=== PATIENT | male | born 1960 | race Caucasian/White ===

== ENCOUNTER 2022-04-11 13:20 | Emergency (ER) | payer OTHER, SELFPAY ==
[2022-04-11] VITALS (15 sets, daily range): BP systolic 118–144; BP diastolic 65–88; PULSE 88–117; RESP 18–22; TEMP 35.8; O2SAT 91–98
--- NOTE | ~2022-04-11 | CT_ITS ---
EXAMINATION: CT abdomen pelvis w con DATE: 04/11/2022 15:44 INDICATION: Abdominal pain and bloating TECHNIQUE: Computed tomography (CT) of the abdomen and pelvis was performed with 100 mL Omnipaque-300 intravenous contrast. Automated exposure control and iterative reconstruction technique were employe d. The dose-length product was 1456.96 mGy-cm. COMPARISON: None FINDINGS: Mild elevation of the left hemidiaphragm with mild left basilar atelectasis. Heart size is normal. At herosclerotic coronary artery calcific location. No pericardial or pleural effusion. Liver, gallbladd er, spleen, pancreas, bilateral adrenal glands and kidneys are normal. Bowels including the appendix are normal. Bladder and prostate are normal. No free intraperitoneal gas or fluid. No pathologically enlarged abdominal or pelvic lymphadenopathy. Increased fat within the bilateral inguinal canals whic h could be related to either body habitus or small inguinal hernias. Subcutaneous soft tissue gas ext ending posteriorly from the mid left inguinal region, posterior and lateral to the left inguinal katherin l along the left side of the perineum to the inferior left side of the gluteal cleft. No abscess. The re are bridging osteophytes at multiple levels in the lower thoracic spine, consistent with diffuse i diopathic skeletal hyperostosis (DISH). IMPRESSION: 1. Subcutaneous soft tissue gas extending from the left inguinal region along the left side of the pe rineum to the left inferior aspect of the gluteal cleft. This is concerning for necrotizing fasciitis for which emergent surgical consultation would be indicated. Correlate for skin laceration, recent s urgery or other alternative potential etiology. Dr. Byrnes discussed these findings with Dr. Corky perez at 3:58 PM. 2. No acute intra-abdominal/pelvic process. Reviewed, dictated and finalized at location B. IMPRESSION: 1. Subcutaneous soft tissue gas extending from the left inguinal region along t he left side of the perineum to the left inferior aspect of the gluteal cleft. This is concerning for necrotizing fasciitis for which emergent surgical consul tation would be indicated. Correlate for skin laceration, recent surgery or oth er alternative potential etiology. Dr. Byrnes discussed these findings with Arianne Justice at 3:58 PM. 2. No acute intra-abdominal/pelvic process.
--- NOTE | ~2022-04-11 | XR_ITS ---
EXAMINATION: XR chest 2V DATE: 04/11/2022 14:01 INDICATION: Body weakness for 5 days. TECHNIQUE: frontal and lateral views of the chest were obtained. COMPARISON: Chest radiograph dated 09/03/2010 FINDINGS: The lungs are clear with no focal airspace opacities, pulmonary edema, pleural effusion or pneumothor ax. The cardiomediastinal silhouette is normal. Visualized bones and soft tissues are unremarkable. IMPRESSION: 1. No acute cardiopulmonary disease. Reviewed, dictated and finalized at location B.
--- NOTE | ~2022-04-11 | XR_ITS ---
EXAMINATION: XR abdomen/kub 1V DATE: 04/11/2022 14:01 INDICATION: Abdominal bloating. Body weakness for 5 days. TECHNIQUE: A supine view of the abdomen on 2 radiographs was obtained. COMPARISON: None. FINDINGS: Small amount of gas and stool scattered throughout the colon. Small amount of gas within a couple loo ps of small bowel in the abdomen. No dilated gas-filled loops of bowel to suggest obstruction. Elevat ion of the left hemidiaphragm. Atherosclerotic calcification at the bilateral common iliac arteries. Mild scattered degenerative skeletal changes in the spine and pelvis. IMPRESSION: 1. Normal bowel gas pattern. 2. Elevation the left hemidiaphragm. Reviewed, dictated and finalized at location B.
--- NOTE | 2022-04-11 13:31 | ECG_ITS ---
Measurements Intervals [place] Rate: 111 P: 38 TX: 164 QRS: 35 QRSD: 96 T: 45 QT: 312 QTc: 425 Interpretive Statements SINUS TACHYCARDIA VENTRICULAR PREMATURE COMPLEXES POSSIBLE LEFT ATRIAL ENLARGEMENT INCOMPLETE RIGHT BUNDLE BRANCH BLOCK CONSIDER ANTEROSEPTAL INFARCT, AGE INDETERMINATE BASELINE ARTIFACT- I, II, III, AVR ABNORMAL ECG Electronically Signed On 04-11-2022 13:55:16 CDT by Regan Nguyen D.O.
--- NOTE | 2022-04-11 13:41 | ED.WEAKNESS ---
HPI - Weakness General Chief complaint: Weakness <Jeremiah Crespo APRN - Last Filed: 04/11/22 18:03> Stated complaint: weakness <Jeremiah Crespo APRN - Last Filed: 04/11/22 18:03> Time Seen by Provider: 04/11/22 13:30 <Jeremiah Crespo APRN - Last Filed: 04/11/22 18:03> History of Present Illness HPI Narrative: 61-year-old male history of CVA and coronary artery disease presents emergency room for evaluation of generalized weakness. Patient reports that he is dehydrated and has been for 6 days. Patient states that he was seen at his primary care physician office 5 days ago and was told he had a virus. Patient states that his weakness is worsened, and is associated with no bowel movements for 6 days. Patient does state he has flatulence, and does not have any abdominal pain. Patient states he is currently on Augmentin for a gluteal cyst. Denies dysuria or fever. Patient states that he attempted to eat yesterday, became nauseated and threw his food up. Patient states he has not had any oral intake since yesterday. <Jeremiah Crespo APRN - Last Filed: 04/11/22 18:03> Related Data Home medications: Home Medications Medication Instructions Recorded Confirmed amoxicillin-pot clavulanate tablet 04/11/22 aspirin 04/11/22 atorvastatin [Lipitor] 04/11/22 bupropion HCl (smoking deter) mg PO 04/11/22 carvedilol 04/11/22 lisinopril 04/11/22 rosuvastatin mg 04/11/22 04/11/22 sitagliptin-metformin [Janumet] tablet 04/11/22 <Jeremiah Crespo APRN - Last Filed: 04/11/22 18:03> Allergies/Adverse reactions: Allergies Allergy/AdvReac Type Severity Reaction Status Date / Time No Known Allergies Allergy Mild Verified 08/31/10 20:43 <Jeremiah Crespo APRN - Last Filed: 04/11/22 18:03> Review of Systems Review of Systems: CONSTITUTIONAL: Denies fever, chills, or sweats. EYES: Denies visual changes, redness, or discharge. ENT: Denies rhinorrhea, congestion, sore throat, or otalgia. CARDIOVASCULAR: Denies chest pain, palpitations, or edema. RESPIRATORY: Denies cough or dyspnea. GASTROINTESTINAL: Denies abdominal pain, nausea, vomiting, or diarrhea. GENITOURINARY: Denies dysuria or hematuria. SKIN: Denies rash or itching. MUSCULOSKELETAL: Denies back pain, joint pain, or myalgia. NEUROLOGIC: Reports generalized weakness PSYCHIATRIC: Denies anxiety or depression. <Jeremiah Crespo APRN - Last Filed: 04/11/22 18:03> Exam Narrative: GENERAL: Well-appearing, well-nourished, and in no acute distress. HEAD: Normocephalic, atraumatic. EYES: PERRLA and EOMI. CHEST: Clear to auscultation. No respiratory distress. Rhonchi heard throughout, wheezes in upper lung marcial HEART: Tachycardic and regular rhythm. No murmur heard. Normal peripheral pulses. ABDOMEN: Soft, nontender, obese, nondistended, normal active bowel sounds. Large, indurated, erythematous mass noted to the left inguinal region into the left scrotum EXTREMITIES: Normal range of motion. No edema. SKIN: Warm, dry, no rash. NEURO: Left upper extremity weakness. alert and oriented x3. PSYCH: Normal mood and affect. <Jeremiah Crespo APRN - Last Filed: 04/11/22 18:03> Course PRESS WRITER/PA Physician Supervision For this encounter, I have reviewed the PA documentation, treatment plan and medical decision making: And I have had [id number] time with the patient. 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
[2022-04-11 13:43] LABS: Basophils Absolute Auto 0.1 K/mm3 (0.0-0.1); Basophils Percent Auto 0.1 % (0.2-1.2); Hematocrit 48.7 % (42.0-52.0); Hemoglobin 16.5 g/dL (14.0-18.0); Immature Granulocyte Absolute 0.96 K/mm3 (0.00-0.031); Immature Granulocyte Percent A 2.2 % (0-0.5); Lymphocytes Absolute Auto 1.33 K/mm3 (0.9-3.2); Mean Corpuscular HGB Conc 33.9 g/dl (32-36); Mean Corpuscular Hemoglobin 30.2 pg (26-34); Mean Corpuscular Volume 89.2 fl (80-100); Mean Platelet Volume 9.6 fl (7.4-10.4); Monocytes Absolute Auto 3.8 K/mm3 (0.1-0.6); Monocytes Percent Auto 8.5 % (2.6-8.5); Neutrophils Percent Auto 86.2 % (45.5-73.1); Platelet Count Result 287 k/mm3 (150-375); Red Blood Count 5.46 M/mm3 (4.6-6.20); Red Cell Distribution Width 13.1 % (11.5-14.5); White Blood Count 44.1 K/mm3 (4.5-10.0)
[2022-04-11 13:53] LABS: Alanine Aminotransferase 21 U/L (6-50); Albumin Level 3.6 g/dL (3.5-5.1); Alkaline Phosphatase 165 U/L (38-126); Anion Gap 10 mmol/L (8-16); Aspartate Amino Transferase 23 U/L (17-59); Bilirubin,Total 1.5 mg/dL (0.2-1.3); Blood Urea Nitrogen 15 mg/dL (9-20); Calcium 8.4 mg/dL (8.4-10.2); Carbon Dioxide 24 mmol/L (22-30); Chloride 90 mmol/L (98-107); Estimated CRCL calculation 90 ml/min; Estimated Glomerular Filt Rate > 60; Glucose 282 mg/dL (65-110); Potassium 4.3 mmol/L (3.4-5.0); Sodium 124 mmol/L (137-145)
[2022-04-11] MEDS: SODIUM CHLORIDE 0.9% IV 1,000 ML 150 ML IV CONT (13:59)
[2022-04-11] MEDS: ALBUTEROL SULFATE NEB 2.5 MG/3 ML INH INHALATION ×3 (14:04→14:40)
[2022-04-11] MEDS: IPRATROPIUM BR 0.02% INH SOLN 0.5 MG/2.5 ML VIAL INHALATION (14:04)
[2022-04-11 14:05] LABS: NT Pro B Type Natriuretic Pept 845 pg/mL (5-100); Troponin I < 0.012 ng/mL (0.000-0.034)
[2022-04-11 15:08] LABS: Influenza A QL RT-PCR Negative (Negative); Influenza B QL RT-PCR Negative (Negative); SARS-CoV-2 RNA PCR Negative
[2022-04-11] MEDS: SODIUM CHLORIDE 0.9% IV 1,000 ML 999 ML IV CONT (16:14)
[2022-04-11] MEDS: CLINDAMYCIN 900 MG/D5W 50 ML 900 MG/50 ML PIGGYBACK 50 MG IVPB (16:24)
--- NOTE | 2022-04-11 16:32 | PC.NURSE ---
report called to [facility] er. [place] [facility] called for transport
[2022-04-11 17:24] LABS: CRP 39.8 mg/dL (<1.0)
--- NOTE | 2022-04-11 17:31 | PC.NURSE ---
[facility] accepted transfer to [facility] er [facility] extended to 1900
== END 2022-04-11 18:09 | disposition short-term general hospital (02) ==
PROVIDERS: Emergency Provider Nurse Practitioner Family
DX: N49.3 Fournier gangrene (principal); Z20.822 Contact with and (suspected) exposure to COVID-19; I25.10 Atherosclerotic heart disease of native coronary artery without angina pectoris; E11.9 Type 2 diabetes mellitus without complications; Z86.73 Personal history of transient ischemic attack (TIA), and cerebral infarction without residual deficits; Z79.82 Long term (current) use of aspirin; Z79.84 Long term (current) use of oral hypoglycemic drugs
CPT/HCPCS: 36415; 71046; 74018; 74177; 80053; 83605; 83880; 84484; 85025; 86140; 87040; 87502; 93005; 94640; 96361; 96365; 96367; 99285; C9803; J0743; J3370; J7030; Q9967; U0003; U0005

== ENCOUNTER 2023-08-04 16:32 | Inpatient (IN) | payer BC, SELFPAY ==
[2023-08-04] VITALS (15 sets, daily range): BP systolic 92–119; BP diastolic 59–80; PULSE 60–74; RESP 17–32; TEMP 36.4–36.7; O2SAT 74–98
--- NOTE | ~2023-08-04 | CT_ITS ---
EXAMINATION: CTA brain carotid DATE: 08/04/2023 22:51 INDICATION: Right-sided weakness and ataxia TECHNIQUE: Computed tomographic angiography (CTA) of the head was performed without and with 100 mL O mnipaque-350 intravenous contrast. CTA of the neck was performed with intravenous contrast. The dose- length product was 2569.65 mGy-cm. Maximum intensity projection and volume rendered 3D-reconstruction s were created by the technologist on a separate workstation. Automated exposure control and iterativ e reconstruction technique were employed. COMPARISON: 09/02/2010 FINDINGS: HEAD CTA: There is no acute intraparenchymal hemorrhage. No evidence of mass lesion. No evidence of a cute infarction. There is mild periventricular and subcortical hypodensity probably related to small vessel ischemic disease. There is mild prominence of the sulci and ventricles related to cerebral atr ophy. Intracranial calcified cerebral atherosclerosis is noted. There are no extra-axial collections. There is no mass effect or midline shift. The orbits and soft tissues are unremarkable. There is mil d mucosal thickening of the paranasal sinuses. There is no significant stenosis of the basilar artery or posterior cerebral arteries. There is no si gnificant stenosis of the intracranial internal carotid arteries or the anterior or middle cerebral a rteries. The anterior communicating artery and posterior communicating arteries are normal. There is no aneurysm. NECK CTA: The thyroid gland is unremarkable. The submandibular and parotid glands are symmetric. Ther e is no lymphadenopathy. There are no masses identified. The airway is unremarkable. The superior med iastinum is unremarkable. There is severe cervical spondylosis. There is 0% stenosis of the proximal right internal carotid artery relative to normal distal artery l umen diameter (NASCET criteria). There is 0% stenosis of the proximal left internal carotid artery re lative to normal distal artery lumen diameter. IMPRESSION: 1. No acute intracranial abnormality. Normal head CTA. 2. 0% stenosis of the proximal right internal carotid artery relative to normal distal artery lumen d iameter (NASCET criteria). 3. 0% stenosis of the proximal left internal carotid artery relative to normal distal artery lumen di ameter. Reviewed, dictated and finalized at location F. IMPRESSION: 1. No acute intracranial abnormality. Normal head CTA. 2. 0% stenosis of the proximal right internal carotid artery relative to normal distal artery lumen diameter (NASCET criteria). 3. 0% stenosis of the proximal left internal carotid artery relative to normal distal artery lumen diameter.
--- NOTE | ~2023-08-04 | CT_ITS ---
EXAMINATION: CT abdomen pelvis wo con DATE: 08/04/2023 22:48 INDICATION: Acute renal failure TECHNIQUE: Computed tomography (CT) of the abdomen and pelvis was performed without intravenous contr ast. The dose-length product (DLP) was 1626.10 mGy-cm. Automated exposure control and iterative recon struction technique were employed. COMPARISON: 04/11/2022 FINDINGS: Portions of the left abdomen are excluded from the examination. Minimal dependent atelectas is is present in the lung bases. Cardiomegaly is noted. The liver, spleen, pancreas, and adrenal glan ds are normal. The gallbladder is mildly distended. There appears to be mild gallbladder wall thicken ing and pericholecystic inflammatory change. There is calcified atherosclerosis of the aorta and many of the other arteries. No pathologically enlarged abdominal or pelvic lymph nodes are identified. No free intraperitoneal gas or evidence of bowel obstruction. There are bilateral inguinal hernias cont aining fat. There is a burst fracture of L3, new since the comparison examination. IMPRESSION: 1. Findings suspicious for acute cholecystitis. Correlate for right upper quadrant pain. 2. L3 burst fracture, new since the comparison examination. Reviewed, dictated and finalized at location F. IMPRESSION: 1. Findings suspicious for acute cholecystitis. Correlate for right upper quadr ant pain. 2. L3 burst fracture, new since the comparison examination.
--- NOTE | ~2023-08-04 | US_ITS ---
US abdomen limited DATE: 08/05/2023 09:07 INDICATION: Right upper quadrant abdominal pain TECHNIQUE: Real-time imaging of liver, pancreas, gallbladder, Doppler analysis COMPARISON: 08/04/2023 CT abdomen pelvis 04/11/2022 CT abdomen pelvis FINDINGS: No hepatic or pancreatic space-occupying mass lesion is evident. Normal hepatopedal portal venous flow direction. There is gallbladder wall thickening, gallbladder wall measuring up to approximately 4.7 mm thickness . Negative sonographic Olmedo's sign. The common bile duct measures up to approximately 7 mm, borderline. Recommend correlation with serum bilirubin level. IMPRESSION: Gallbladder wall thickening; cannot exclude acute cholecystitis Reviewed, dictated and finalized at Location A. Reviewed, dictated and finalized at location A.
--- NOTE | ~2023-08-04 | XR_ITS ---
EXAMINATION: XR chest 1V portable INDICATION: Weakness, hypertension TECHNIQUE: Portable AP chest at 2129 hours COMPARISON: 04/11/2022 FINDINGS: The lung volumes are low. The lungs are free of acute opacities. No pleural effusion or pne umothorax. The cardiomediastinal silhouette is normal. IMPRESSION: 1. No acute cardiopulmonary abnormality. Reviewed, dictated and finalized at location F.
--- NOTE | 2023-08-04 20:47 | ECG_ITS ---
Measurements Intervals [place] Rate: 62 P: 27 NV: 153 QRS: 19 QRSD: 102 T: -29 QT: 378 QTc: 385 Interpretive Statements SINUS RHYTHM INCOMPLETE RIGHT BUNDLE BRANCH BLOCK INFERIOR INFARCT, AGE INDETERMINATE ST-T WAVE ABNORMALITY IN ANTERIOR LEADS- CONSIDER ISCHEMIA ABNORMAL ECG COMPARED TO ECG 04/11/2022 13:36:38 SINUS RHYTHM NOW PRESENT Electronically Signed On 08-05-2023 7:22:08 CDT by Regan Nguyen D.O.
[2023-08-04 21:14] LABS: Alveolar/Arterial O2 Gradient 33.4 mmHg; Base Excess ABG -0.1 mEq/l (+/-2.0); Fractional Inspired Oxygen 21 %; HCO3 ABG 28.5 mEq/l (22.0-26.0); Oxygen Content ABG 17.6 %vol (16.0-22.0); PO2 FiO2 Ratio Arterial Blood 2.02 %; Total Hemoglobin 17.2 g/dL (12.0-18.0)
[2023-08-04 21:17] LABS: Basophils Percent Auto 0.3 % (0.2-1.2); Eosinophils Absolute Auto 0.1 K/mm3 (0-0.3); Eosinophils Percent Auto 0.3 % (0-4.4); Hematocrit 53.9 % (42.0-52.0); Hemoglobin 16.6 g/dL (14.0-18.0); Immature Granulocyte Absolute 0.08 K/mm3 (0.00-0.031); Immature Granulocyte Percent A 0.5 % (0-0.5); Lymphocytes Absolute Auto 2.48 K/mm3 (0.9-3.2); Lymphocytes Percent Auto 16.3 % (18.3-44.2); Mean Corpuscular HGB Conc 30.8 g/dl (32-36); Mean Corpuscular Hemoglobin 29.7 pg (26-34); Mean Corpuscular Volume 96.6 fl (80-100); Mean Platelet Volume 9.9 fl (7.4-10.4); Monocytes Absolute Auto 1.7 K/mm3 (0.1-0.6); Neutrophils Absolute Auto 10.9 K/mm3 (1.3-6.7); Neutrophils Percent Auto 71.6 % (45.5-73.1); Platelet Count Result 253 k/mm3 (150-375); Red Blood Count 5.58 M/mm3 (4.6-6.20); Red Cell Distribution Width 15.7 % (11.5-14.5); White Blood Count 15.2 K/mm3 (4.5-10.0)
[2023-08-04 21:18] LABS: PCO2 ABG 61.7 mmHg (35.0-45.0); pH ABG 7.282 (7.350-7.450)
[2023-08-04 21:19] LABS: PO2 ABG 42.4 mmHg (80.0-100.0)
[2023-08-04 21:20] LABS: Site Drawn RIGHT RADIAL
[2023-08-04 21:21] LABS: Device ROOM AIR; Modified Allen's Test Pass
[2023-08-04] MEDS: SODIUM CHLORIDE 0.9% IV 1,000 ML 999 ML IV CONT ×3 (21:21→22:10)
[2023-08-04 21:26] LABS: INR 1.1; Prothrombin Time 14.9 Seconds (11.1-14.7)
[2023-08-04 21:27] LABS: Partial Thromboplastin Time 27.2 SECONDS (22.3-36.8)
[2023-08-04 21:30] LABS: Lactic Acid Reflex 1.4 mmol/L (0.7-2.0)
[2023-08-04 21:33] LABS: Alanine Aminotransferase 16 U/L (6-50); Albumin Level 3.8 g/dL (3.5-5.1); Alkaline Phosphatase 82 U/L (38-126); Anion Gap 5 mmol/L (8-16); Aspartate Amino Transferase 21 U/L (17-59); Bilirubin,Total 0.6 mg/dL (0.2-1.3); Blood Urea Nitrogen 62 mg/dL (9-20); CRP 2.5 mg/dL (<1.0); Calcium 8.6 mg/dL (8.4-10.2); Carbon Dioxide 31 mmol/L (22-30); Chloride 94 mmol/L (98-107); Estimated CRCL calculation 44 ml/min; Estimated Glomerular Filt Rate 32; Glucose 170 mg/dL (65-110); Lipase 66 U/L (23-300); Magnesium 2.4 mg/dL (1.6-2.3); Potassium 6.1 mmol/L (3.4-5.0); Sodium 130 mmol/L (137-145)
[2023-08-04] MEDS: SODIUM BICARBONATE 8.4% 50 MEQ/50 ML SYRINGE IV PUSH (21:41)
[2023-08-04] MEDS: CALCIUM GLUCONATE 1,000 MG/10 ML VIAL 1000 MG IV PUSH (21:41)
[2023-08-04] MEDS: INSULIN HUMAN REGULAR (*BKC) 100 UNITS/ML 10 UNITS IV PUSH (21:41)
[2023-08-04] MEDS: DEXTROSE 50% 25 GM/50 ML SYRINGE IV PUSH (21:41)
[2023-08-04 21:42] LABS: NT Pro B Type Natriuretic Pept 4560 pg/mL (19.9-100); Troponin I 0.545 ng/mL (0.000-0.034)
[2023-08-04] MEDS: SODIUM POLYSTYRENE SULFONONATE 15 GM/60 ML BTL 30 GM PO (21:42)
[2023-08-04 21:45] LABS: Procalcitonin 0.2 ng/mL
[2023-08-04 21:50] LABS: Erythrocyte Sedimentation Rate 1 mm/hr (0-20)
[2023-08-04 21:51] LABS: Influenza A QL RT-PCR Negative (Negative); Influenza B QL RT-PCR Negative (Negative); SARS-CoV-2 RNA PCR Negative (Negative)
[2023-08-04 23:26] LABS: Alveolar/Arterial O2 Gradient 87.7 mmHg; Base Excess ABG -3.3 mEq/l (+/-2.0); Fractional Inspired Oxygen 36 %; HCO3 ABG 28.2 mEq/l (22.0-26.0); Oxygen Content ABG 19.7 %vol (16.0-22.0); Oxygen Saturation ABG 89.4 % (95.0-100.0); PO2 ABG 73.5 mmHg (80.0-100.0); PO2 FiO2 Ratio Arterial Blood 2.04 %; Total Hemoglobin 16.1 g/dL (12.0-18.0)
[2023-08-04 23:26] LABS: Appearance Urine Turbid (Clear); Bacteria Urine None Seen /hpf; Bilirubin Urine Negative (Negative); Blood Urine Trace (Negative); Color Urine Dark Yellow (Yellow); Glucose Urine UA Negative (Negative); Hyaline Casts Urine Present /lpf; Ketones Urine Negative (Negative); Leukocyte Esterase Ur Negative LEU/UL (Negative); Nitrate Urine Negative (Negative); Non Pathogenic Casts >20; Protein Urine 2+ mg/dL (Negative); RBC Urine 0-2 /hpf (0-2); Specific Grav Ur 1.033 (1.001-1.035); Squamous Epithelial Cell Urine Many /hpf (Few)
[2023-08-04 23:28] LABS: pH ABG 7.152 (7.350-7.450)
[2023-08-04 23:29] LABS: PCO2 ABG 82.3 mmHg (35.0-45.0)
[2023-08-04 23:30] LABS: Device NASAL CANNULA; Modified Allen's Test Pass; Oxyhemoglobin 87.1 % THb (90.0-100.0); Site Drawn RIGHT RADIAL
[2023-08-04 23:45] LABS: Add Urine Microscopic? YES
--- NOTE | 2023-08-04 23:46 | ED.GENADULT ---
HPI - General Adult General Chief complaint: Neuro Symptoms/Deficit Stated complaint: weakness Time Seen by Provider: 08/04/23 20:32 History of Present Illness HPI narrative: Patient 62-year-old gentleman who presents the emergency department with chief complaint of right-sided weakness. Patient reports that he has prior history of stroke and history of an KS with weakness of the left side of his body patient also reports she has history of diabetes and has had Arthur's gangrene. 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 Patient reports that he had no trauma reports no fever but just feels generally weak Related Data Home Medications Medication Instructions Recorded Confirmed amoxicillin 875 mg-potassium tablet 04/11/22 clavulanate 125 mg tablet aspirin 325 mg tablet 04/11/22 atorvastatin 80 mg tablet (Lipitor) 04/11/22 bupropion HCl (smoking deter) 150 mg PO 04/11/22 mg tablet,12 hr sustained-release(smoking deterrent) carvedilol 6.25 mg tablet 04/11/22 lisinopril 10 mg tablet 04/11/22 rosuvastatin 40 mg tablet mg 04/11/22 04/11/22 sitagliptin phosphate 50 tablet 04/11/22 mg-metformin 1,000 mg tablet (Janumet) Allergies Allergy/AdvReac Type Severity Reaction Status Date / Time No Known Allergies Allergy Mild Verified 08/31/10 20:43 Review of Systems Review of Systems: A 10 system review of systems was completed on the patient and is negative except for what is stated in the HPI. Nursing and ancillary documentation was reviewed. Exam Narrative: GENERAL: Well-appearing, well-nourished, and in no acute distress. HEAD: Normocephalic, atraumatic. EYES: PERRLA and EOMI. ENT: Nares clear, no rhinorrhea or epistaxis. Mucous membranes moist. NECK: Supple. CHEST: Clear to auscultation. No respiratory distress. HEART: Regular rate and rhythm. No murmur heard. Normal peripheral pulses. ABDOMEN: Soft, nontender, nondistended, normal active bowel sounds. EXTREMITIES: Normal range of motion. No edema. : No crepitance no necrotic tissue no appreciable abscess or cellulitis SKIN: Warm, dry, no rash. NEURO: No focal deficits. Slightly decreased sustainability director strength on the right upper extremity left lower extremity is chronically weak and is able to lift against gravity. Right lower extremity is slightly weaker alert and oriented x3. PSYCH: Normal mood and affect. Course Vital Signs Vital signs: Vital Signs Temperature 36.7 C 08/04/23 16:34 Pulse Rate 64 08/04/23 16:34 Respiratory Rate 22 H 08/04/23 16:34 Blood Pressure 114/59 L 08/04/23 16:34 Pulse Oximetry 93 08/04/23 16:34 Oxygen Delivery Room Air 08/04/23 16:34 Temperature 36.4 C 08/04/23 20:37 Pulse Rate 68 08/04/23 23:16 Respiratory Rate 24 H 08/04/23 23:16 Blood Pressure 119/80 08/04/23 23:16 Pulse Oximetry 96 08/04/23 23:16 Oxygen Delivery Nasal Cannula 08/04/23 21:20 Oxygen Flow Rate 3 08/04/23 21:20 Medical Decision Making [facility] Narrative Medical decision making narrative: Differential diagnosis includes stroke, ACS, hypercapnic respiratory failure, pneumonia, COVID, UTI, dehydration, renal failure Laboratory studies were obtained on the patient which showed a white count of 15.2 initial ABG showed a pH of 7.262 the patient was repositioned and allowed to ventilate better due to his body habitus and repeat ABG showed a pH of 7.152 with a PCO2 of 82. Patient was started on BiPAP at that time. Chest x-ray showed no focal infiltrate no signs of pulmonary edema electrolytes showed a sodium of 130 a CO2 of 31 anion gap of 5 creatinine of 2.1 which is increased from his last set of electrolytes less than year ago that showed a creatinine 1.0 patient a glucose of 170 lactic acid was 1.4 magnesium was 2.4 liver enzymes were within normal limits [facility], [place]
[2023-08-05] VITALS (92 sets, daily range): BP systolic 100–143; BP diastolic 64–99; PULSE 54–82; RESP 11–29; TEMP 35.6–36.6; O2SAT 87–100; BMI 44.1
[2023-08-05] MEDS: ASPIRIN 81 MG CHEWABLE TABLET 324 MG PO (00:20)
[2023-08-05] MEDS: SODIUM CHLORIDE 0.9% IV 1,000 ML 125 ML IV CONT ×2 (00:41→09:00)
[2023-08-05 02:21] LABS: Troponin I 0.485 ng/mL (0.000-0.034)
[2023-08-05 03:34] LABS: Troponin I 0.448 ng/mL (0.000-0.034)
[2023-08-05 08:32] LABS: Glucose Point of Care 134 mg/dl (65-105)
[2023-08-05] MEDS: ASPIRIN 81 MG CHEWABLE TABLET PO (09:06)
[2023-08-05 10:28] LABS: Basophils Absolute Auto 0.1 K/mm3 (0.0-0.1); Basophils Percent Auto 0.4 % (0.2-1.2); Eosinophils Percent Auto 0.3 % (0-4.4); Hematocrit 54.3 % (42.0-52.0); Hemoglobin 16.2 g/dL (14.0-18.0); Immature Granulocyte Absolute 0.06 K/mm3 (0.00-0.031); Immature Granulocyte Percent A 0.4 % (0-0.5); Lymphocytes Absolute Auto 1.33 K/mm3 (0.9-3.2); Lymphocytes Percent Auto 9.9 % (18.3-44.2); Mean Corpuscular HGB Conc 29.8 g/dl (32-36); Mean Corpuscular Hemoglobin 29.9 pg (26-34); Mean Corpuscular Volume 100.4 fl (80-100); Mean Platelet Volume 9.6 fl (7.4-10.4); Monocytes Absolute Auto 1.3 K/mm3 (0.1-0.6); Monocytes Percent Auto 9.9 % (2.6-8.5); Neutrophils Absolute Auto 10.6 K/mm3 (1.3-6.7); Neutrophils Percent Auto 79.1 % (45.5-73.1); Platelet Count Result 194 k/mm3 (150-375); Red Blood Count 5.41 M/mm3 (4.6-6.20); Red Cell Distribution Width 15.8 % (11.5-14.5); White Blood Count 13.4 K/mm3 (4.5-10.0)
[2023-08-05 10:31] LABS: Alveolar/Arterial O2 Gradient 150.3 mmHg; Base Excess ABG -1.8 mEq/l (+/-2.0); Fractional Inspired Oxygen 40 %; HCO3 ABG 27.1 mEq/l (22.0-26.0); Oxygen Content ABG 20.4 %vol (16.0-22.0); Oxyhemoglobin 88.3 % THb (90.0-100.0); PO2 ABG 62.9 mmHg (80.0-100.0); PO2 FiO2 Ratio Arterial Blood 1.57 %; Total Hemoglobin 16.5 g/dL (12.0-18.0)
[2023-08-05 10:44] LABS: pH ABG 7.254 (7.350-7.450)
[2023-08-05 10:47] LABS: PCO2 ABG 62.6 mmHg (35.0-45.0); Site Drawn LEFT BRACHIAL
[2023-08-05 10:48] LABS: Device NON-INVASIVE VENT; Non-Invasive Expiratory Pressure 8 CMH2O; Non-Invasive Inspiratory Pressure 20 CMH2O; Non-Invasive Vent Rate 24 /MIN
[2023-08-05 10:51] LABS: Alanine Aminotransferase 15 U/L (6-50); Albumin Level 3.5 g/dL (3.5-5.1); Alkaline Phosphatase 79 U/L (38-126); Anion Gap 6 mmol/L (8-16); Aspartate Amino Transferase 26 U/L (17-59); Bilirubin,Total 0.5 mg/dL (0.2-1.3); Blood Urea Nitrogen 50 mg/dL (9-20); Calcium 8.1 mg/dL (8.4-10.2); Carbon Dioxide 29 mmol/L (22-30); Chloride 100 mmol/L (98-107); Estimated CRCL calculation 48 ml/min; Estimated Glomerular Filt Rate 36; Glucose 131 mg/dL (65-110); Potassium 5.6 mmol/L (3.4-5.0); Sodium 135 mmol/L (137-145)
[2023-08-05 11:00] LABS: Platelet Estimate Adequate (Adequate); Schistocytes None Seen (NORMAL)
--- NOTE | 2023-08-05 11:05 | PM.IMHP ---
H&P: HPI History of Present Illness Date/Time: 08/05/23 11:05 Chief Complaint: Right-sided weakness Narrative: Patient 62-year-old morbidly obese man who presents the emergency department with chief complaint of right-sided weakness.? Patient reports that he has prior history of stroke and history of an CO with weakness of the left side of his body. patient also reports history of diabetes and has had Arthur's gangrene.? 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 At the time of my examination he had no weakness in her right upper or lower extremity. CTA head and neck were negative for any acute findings in the ED. patient denies any fever chills chest pain abdominal pain nausea vomiting or change in bladder or bowel habits. In the ED was found to be hypoxic and was put on BiPAP Review of Systems Review of Systems: All systems reviewed & are unremarkable except as noted in HPI and below Meds Home Medications and Allergies Home Medications Medication Instructions Recorded Confirmed Type amoxicillin 875 mg-potassium tablet 04/11/22 History clavulanate 125 mg tablet aspirin 325 mg tablet 04/11/22 History atorvastatin 80 mg tablet (Lipitor) 04/11/22 History bupropion HCl (smoking deter) 150 mg PO 04/11/22 History mg tablet,12 hr sustained-release(smoking deterrent) carvedilol 6.25 mg tablet 04/11/22 History lisinopril 10 mg tablet 04/11/22 History rosuvastatin 40 mg tablet mg 04/11/22 04/11/22 History sitagliptin phosphate 50 tablet 04/11/22 History mg-metformin 1,000 mg tablet (Janumet) Allergies Allergy/AdvReac Type Severity Reaction Status Date / Time No Known Allergies Allergy Mild Verified 08/31/10 20:43 Vital Signs Vital Signs - 24 hr 08/04/23 16:34 08/04/23 19:55 08/04/23 20:37 Temperature 98.1 F Pulse Rate 64 60 64 Respiratory Rate 22 H 21 H Blood Pressure 114/59 L 104/62 Pulse Oximetry 93 93 Oxygen Delivery Room Air Oxygen Flow Rate 08/04/23 20:37 08/04/23 21:20 08/04/23 21:24 Temperature 97.6 F Pulse Rate 64 62 Respiratory Rate 24 H 30 H Blood Pressure 92/70 L Pulse Oximetry 94 91 90 Oxygen Delivery Nasal Cannula Oxygen Flow Rate 3 08/04/23 21:32 08/04/23 21:58 08/04/23 22:37 Temperature Pulse Rate 65 71 Respiratory Rate 32 H 26 H Blood Pressure Pulse Oximetry 90 91 Oxygen Delivery Oxygen Flow Rate 08/04/23 22:46 08/04/23 23:02 08/04/23 23:03 Temperature Pulse Rate 74 74 Respiratory Rate 28 H 17 Blood Pressure 102/72 Pulse Oximetry 88 L 74 L 78 L Oxygen Delivery Oxygen Flow Rate 08/04/23 23:15 08/04/23 23:16 08/04/23 23:41 Temperature Pulse Rate 70 68 Respiratory Rate 21 H 24 H 20 Blood Pressure 119/80 Pulse Oximetry 98 96 90 Oxygen Delivery BiPAP Oxygen Flow Rate 08/04/23 23:50 08/05/23 00:11 08/05/23 01:22 Temperature 97.6 F Pulse Rate 65 60 Respiratory Rate 24 H 27 H Blood Pressure 104/77 113/77 Pulse Oximetry 90 96 94 Oxygen Delivery BiPAP Oxygen Flow Rate 08/05/23 02:33 08/05/23 03:07 08/05/23 04:20 Temperature Pulse Rate 63 81 63 Respiratory Rate 14 24 H 22 H Blood Pressure 143/87 H 100/67 Pulse Oximetry 98 95 100 Oxygen Delivery BiPAP Oxygen Flow Rate 08/05/23 05:40 08/05/23 05:05 08/05/23 06:29 Temperature Pulse Rate 60 82 63 Respiratory Rate 15 24 H 19 Blood Pressure 120/76 132/80 Pulse Oximetry 100 95 100 Oxygen Delivery BiPAP Oxygen Flow Rate 08/05/23 07:31 08/05/23 09:05 08/05/23 02:01 Temperature Pulse Rate 60 60 62 Respiratory Rate 18 29 H 21 H Blood Pressure 119/78 111/76 Pulse Oximetry 100 100 95 Oxygen Delivery BiPAP Oxygen Flow Rate 08/05/23 02:06 08/05/23 02:15 08/05/23 02:16 Temperature Pulse Rate 62 62 61 Respiratory Rate 18 19 21 H
--- NOTE | 2023-08-05 13:37 | ADMGEN ---
This patient, Uri Rudd, was admitted to IMU Room 231-01 at 1332. Patient/family oriented to hospital policies and general routines including ID bracelet, bed and alarms, visiting hours, pain management, procedures, bathroom and other care routines, personal items, smoking policy, room service/diet, and visiting hours. Information on how to activate the Rapid Response Team has been discussed. Patient/Family are encouraged to report perceived risks to care and to ask questions if they do not understand what they are told or what they should do.
[2023-08-05] MEDS: ENOXAPARIN 40 MG/0.4 ML SYRINGE SUB-Q (17:09)
[2023-08-05 23:36] LABS: Glucose Point of Care 92 mg/dl (65-105)
[2023-08-06] VITALS (19 sets, daily range): BP systolic 129–148; BP diastolic 55–68; PULSE 62–90; RESP 14–25; TEMP 36.1–37.2; O2SAT 92–99
[2023-08-06] MEDS: SODIUM CHLORIDE 0.9% IV 1,000 ML 125 ML IV CONT ×2 (02:20→13:39)
[2023-08-06 05:01] LABS: Basophils Percent Auto 0.4 % (0.2-1.2); Eosinophils Absolute Auto 0.1 K/mm3 (0-0.3); Eosinophils Percent Auto 0.6 % (0-4.4); Hematocrit 50.3 % (42.0-52.0); Hemoglobin 15.1 g/dL (14.0-18.0); Immature Granulocyte Absolute 0.03 K/mm3 (0.00-0.031); Immature Granulocyte Percent A 0.3 % (0-0.5); Lymphocytes Absolute Auto 1.17 K/mm3 (0.9-3.2); Lymphocytes Percent Auto 10.8 % (18.3-44.2); Mean Corpuscular Hemoglobin 29.2 pg (26-34); Mean Corpuscular Volume 97.3 fl (80-100); Mean Platelet Volume 9.8 fl (7.4-10.4); Monocytes Absolute Auto 1.2 K/mm3 (0.1-0.6); Monocytes Percent Auto 11.4 % (2.6-8.5); Neutrophils Absolute Auto 8.3 K/mm3 (1.3-6.7); Neutrophils Percent Auto 76.5 % (45.5-73.1); Platelet Count Result 195 k/mm3 (150-375); Red Blood Count 5.17 M/mm3 (4.6-6.20); Red Cell Distribution Width 15.6 % (11.5-14.5); White Blood Count 10.8 K/mm3 (4.5-10.0)
[2023-08-06 05:09] LABS: Anion Gap 5 mmol/L (8-16); Blood Urea Nitrogen 33 mg/dL (9-20); Calcium 8.2 mg/dL (8.4-10.2); Carbon Dioxide 30 mmol/L (22-30); Chloride 104 mmol/L (98-107); Estimated CRCL calculation 71 ml/min; Estimated Glomerular Filt Rate 52; Glucose 94 mg/dL (65-110); Potassium 4.9 mmol/L (3.4-5.0); Sodium 139 mmol/L (137-145)
[2023-08-06 10:50] LABS: Alveolar/Arterial O2 Gradient 163.8 mmHg; Base Excess ABG -0.7 mEq/l (+/-2.0); Fractional Inspired Oxygen 40 %; HCO3 ABG 24.5 mEq/l (22.0-26.0); Oxygen Content ABG 20.6 %vol (16.0-22.0); Oxygen Saturation ABG 94.3 % (95.0-100.0); Oxyhemoglobin 93.8 % THb (90.0-100.0); PCO2 ABG 42.6 mmHg (35.0-45.0); PO2 ABG 72.4 mmHg (80.0-100.0); PO2 FiO2 Ratio Arterial Blood 1.81 %; Total Hemoglobin 15.6 g/dL (12.0-18.0); pH ABG 7.378 (7.350-7.450)
[2023-08-06 10:51] LABS: Device BIPAP; Site Drawn RIGHT BRACHIAL
[2023-08-06 10:52] LABS: Expiratory Pressure 8 cmH2O; Inspiratory Pressure 20 cmH2O
[2023-08-06] MEDS: ASPIRIN 81 MG CHEWABLE TABLET PO (13:38)
[2023-08-06] MEDS: ENOXAPARIN 40 MG/0.4 ML SYRINGE SUB-Q (13:38)
--- NOTE | 2023-08-06 16:42 | PM.IMPN ---
Progress Note: A&P Assessment and Plan (1) Acute hypercapnic respiratory failure: Code(s): J96.02 - Acute respiratory failure with hypercapnia Status: Acute Assessment and Plan: Patient weaned off to oxygen ABG reviwed this AM (2) Cholecystitis: Code(s): K81.9 - Cholecystitis, unspecified Status: Acute Assessment and Plan: Patient denies any abdominal pain. This appears to be an incidental finding. He has been started on IV Rocephin which will continue for now. (3) Generalized weakness: Code(s): R53.1 - Weakness Status: Acute Assessment and Plan: Weakness on the right side has resolved. Does not appear to be stroke. Head CTA normal. He reported some numbness in his fingers on the right hand. Could be cervical neuropathy. (4) Acute kidney injury: Code(s): N17.9 - Acute kidney failure, unspecified Status: Acute Assessment and Plan: Baseline creatinine is 1.0. Acute kidney injury is likely secondary to dehydration. Continue IV fluids. Monitor BMP (5) Acute UTI: Code(s): N39.0 - Urinary tract infection, site not specified Status: Acute Assessment and Plan: pt is on iv rocephin follow cultures Subjective Date/time seen: 08/06/23 16:42 Interval history: 62-year-old morbidly obese man who presents the emergency department with chief complaint of right-sided weakness.? Patient reports that he has prior history of stroke and history of an AK with weakness of the left side of his body.? patient also reports history of diabetes and has had Arthur's gangrene.?? Pt admitted wit weakness, resp failure and cholecystitis Pt can come of BIPAP and start 4-5 liters of oxygen continue to wean off Review of Systems Review of Systems: SOB and cough Exam Narrative: GENERAL: Morbidly obese male wearing oxygen HEAD: Normocephalic, atraumatic. EYES: PERRLA and EOMI. ENT: Nares clear, no rhinorrhea or epistaxis. Mucous membranes moist. NECK: Supple. CHEST: Clear to auscultation. No respiratory distress. HEART: Regular rate and rhythm. No murmur heard. Normal peripheral pulses. ABDOMEN: Soft, nontender, nondistended, normal active bowel sounds. EXTREMITIES: Normal range of motion. No edema. : No crepitance no necrotic tissue no appreciable abscess or cellulitis SKIN: Warm, dry, no rash. NEURO: No focal deficits. Slightly decreased tableau architect strength on the right upper extremity, left lower extremity is chronically weak and is able to lift against gravity. Left upper extremity is slightly weaker. alert and oriented x3. PSYCH: Normal mood and affect. Objective Data Vital Signs Vital Signs: Vital Signs - 24 hr 08/05/23 17:08 08/05/23 18:00 08/05/23 18:12 Temperature Pulse Rate 63 61 Respiratory Rate 26 H Blood Pressure Pulse Oximetry 98 98 Oxygen Delivery BiPAP BiPAP Oxygen Flow Rate Fraction of Inspired Oxygen 50 08/05/23 19:01 08/05/23 20:00 08/05/23 23:30 Temperature 35.6 C L 36.5 C Pulse Rate 58 L 65 71 Respiratory Rate 24 H 24 H Blood Pressure 135/73 139/76 Pulse Oximetry 100 99 Oxygen Delivery Oxygen Flow Rate Fraction of Inspired Oxygen 08/05/23 20:00 08/05/23 20:00 08/05/23 22:00 Temperature Pulse Rate 64 61 Respiratory Rate Blood Pressure Pulse Oximetry 100 Oxygen Delivery BiPAP Oxygen Flow Rate Fraction of Inspired Oxygen 40 08/06/23 00:00 08/06/23 00:00 08/05/23 20:05 Temperature Pulse Rate 62 65 Respiratory Rate 24 H Blood Pressure Pulse Oximetry 99 98 Oxygen Delivery BiPAP BiPAP Oxygen Flow Rate Fraction of Inspired Oxygen 40 08/06/23 02:00 08/06/23 02:47 08/06/23 03:50 Temperature 36.8 C Pulse Rate 69 72 78 Respiratory Rate 21 H 25 H Blood Pressure 148/55 H Pulse Oximetry 98 99 Oxygen Delivery BiPAP Oxygen Flow Rate Fraction of Inspired Oxygen 08/06/23 04:00 08/06/23 04:00 0
[2023-08-06] MEDS: PERMETHRIN 1% LIQUID 59 ML BOTTLE 1 APPLIC TOPICAL (17:18)
[2023-08-06] MEDS: GABAPENTIN 300 MG CAPSULE PO (17:18)
[2023-08-06 19:14] LABS: Glucose Point of Care 241 mg/dl (65-105)
[2023-08-06] MEDS: METOPROLOL TARTRATE 25 MG TABLET PO (20:22)
[2023-08-06 23:22] LABS: Glucose Point of Care 204 mg/dl (65-105)
[2023-08-07] VITALS (20 sets, daily range): BP systolic 115–141; BP diastolic 50–65; PULSE 62–91; RESP 19–28; TEMP 36.6–37.1; O2SAT 91–96
[2023-08-07] MEDS: SODIUM CHLORIDE 0.9% IV 1,000 ML 125 ML IV CONT (06:08)
[2023-08-07 07:35] LABS: Hematocrit 49.3 % (42.0-52.0); Mean Corpuscular HGB Conc 30.4 g/dl (32-36); Mean Corpuscular Hemoglobin 29.2 pg (26-34); Mean Corpuscular Volume 96.1 fl (80-100); Mean Platelet Volume 9.3 fl (7.4-10.4); Platelet Count Result 195 k/mm3 (150-375); Red Blood Count 5.13 M/mm3 (4.6-6.20); Red Cell Distribution Width 15.4 % (11.5-14.5)
[2023-08-07 07:47] LABS: Anion Gap -1 mmol/L (8-16); Blood Urea Nitrogen 19 mg/dL (9-20); Calcium 8.2 mg/dL (8.4-10.2); Carbon Dioxide 33 mmol/L (22-30); Chloride 102 mmol/L (98-107); Estimated CRCL calculation 82 ml/min; Estimated Glomerular Filt Rate > 60; Glucose 201 mg/dL (65-110); Potassium 4.4 mmol/L (3.4-5.0); Sodium 134 mmol/L (137-145)
[2023-08-07 11:54] LABS: Glucose Point of Care 311 mg/dl (65-105)
[2023-08-07] MEDS: ASPIRIN 81 MG CHEWABLE TABLET PO (13:01)
[2023-08-07] MEDS: ENOXAPARIN 40 MG/0.4 ML SYRINGE SUB-Q (13:01)
[2023-08-07] MEDS: lisinopriL 10 MG TABLET PO (13:01)
[2023-08-07] MEDS: GABAPENTIN 300 MG CAPSULE PO ×3 (13:01→18:51)
[2023-08-07] MEDS: METOPROLOL TARTRATE 25 MG TABLET PO ×2 (13:01→21:44)
[2023-08-07] MEDS: ROSUVASTATIN 10 MG TABLET 40 MG PO (13:02)
[2023-08-07] MEDS: AZITHROMYCIN 500 MG/NS 250 ML 500 MG/250 ML BAG 250 MG IVPB (13:02)
--- NOTE | 2023-08-07 16:05 | PM.IMPN ---
Progress Note: A&P Assessment and Plan (1) Acute hypercapnic respiratory failure: Code(s): J96.02 - Acute respiratory failure with hypercapnia Status: Acute Assessment and Plan: Patient weaned off to oxygen (2) Cholecystitis: Code(s): K81.9 - Cholecystitis, unspecified Status: Acute Assessment and Plan: Patient denies any abdominal pain. This appears to be an incidental finding. He has been started on IV Rocephin which will continue for now. transitioned to oral flagyl (3) Generalized weakness: Code(s): R53.1 - Weakness Status: Acute Assessment and Plan: Weakness on the right side has resolved. Does not appear to be stroke. Head CTA normal. He reported some numbness in his fingers on the right hand. Could be cervical neuropathy. (4) Acute kidney injury: Code(s): N17.9 - Acute kidney failure, unspecified Status: Acute Assessment and Plan: Baseline creatinine is 1.0. resolved can dc fluids creat is better (5) Acute UTI: Code(s): N39.0 - Urinary tract infection, site not specified Status: Acute Assessment and Plan: UC is positive for enterococcus pt transitioned to oral levaquin Plan Pt treated for lice in the hospital Subjective Date/time seen: 08/07/23 16:05 Interval history: 62-year-old morbidly obese man who presents the emergency department with chief complaint of right-sided weakness.? Patient reports that he has prior history of stroke and history of an TN with weakness of the left side of his body.? patient also reports history of diabetes and has had Arthur's gangrene.?? Pt admitted withweakness, resp failure and cholecystitis Pt can come of BIPAP and start 4-5 liters of oxygen continue to wean off UC is positive Pt was on iv zithromax and iv rocephin pt changed to oral levaquin today having low grade fevers still Review of Systems Review of Systems: low grade fever +sob Exam Narrative: GENERAL: Morbidly obese male wearing oxygen ENT: Nares clear, no rhinorrhea or epistaxis. Mucous membranes moist. NECK: Supple. CHEST: Clear to auscultation. No respiratory distress. HEART: Regular rate and rhythm. No murmur heard. Normal peripheral pulses. ABDOMEN: Soft, nontender, nondistended, normal active bowel sounds. EXTREMITIES: Normal range of motion. No edema. : No crepitance no necrotic tissue no appreciable abscess or cellulitis SKIN: Warm, dry, no rash. NEURO: No focal deficits. Slightly decreased waste transportation technician strength on the right upper extremity, left lower extremity is chronically weak and is able to lift against gravity. Left upper extremity is slightly weaker. alert and oriented x3. PSYCH: Normal mood and affect. Objective Data Vital Signs Vital Signs: Vital Signs - 24 hr 08/06/23 18:00 08/06/23 20:22 08/06/23 20:31 Temperature Pulse Rate 76 74 Respiratory Rate Blood Pressure Pulse Oximetry 96 Oxygen Delivery Nasal Cannula Oxygen Flow Rate 5 Fraction of Inspired Oxygen 08/06/23 20:00 08/06/23 20:00 08/06/23 20:00 Temperature 36.4 C Pulse Rate 71 77 Respiratory Rate 22 H Blood Pressure 132/60 Pulse Oximetry 93 94 Oxygen Delivery Nasal Cannula Oxygen Flow Rate 5 Fraction of Inspired Oxygen 08/06/23 22:00 08/06/23 22:43 08/07/23 00:00 Temperature 36.6 C Pulse Rate 68 66 68 Respiratory Rate 22 H Blood Pressure 137/68 Pulse Oximetry 95 Oxygen Delivery Oxygen Flow Rate Fraction of Inspired Oxygen 08/07/23 00:00 08/07/23 02:00 08/07/23 04:00 Temperature 36.6 C Pulse Rate 70 71 Respiratory Rate 20 Blood Pressure 131/63 Pulse Oximetry 93 93 Oxygen Delivery Nasal Cannula Oxygen Flow Rate 5 Fraction of Inspired Oxygen 08/07/23 04:00 08/07/23 04:00 08/07/23 06:00 Temperature Pulse Rate 75 66 Respiratory Rate Blood Pressure Pulse Oximetry 93 Oxygen Delivery Nasa
[2023-08-07 18:29] LABS: Glucose Point of Care 191 mg/dl (65-105)
[2023-08-07] MEDS: SODIUM CHLORIDE 0.9% IV 1,000 ML 70 ML IV CONT (21:40)
[2023-08-08] VITALS (11 sets, daily range): BP systolic 129; BP diastolic 71; PULSE 61–72; RESP 18; TEMP 37; O2SAT 87–96
[2023-08-08 00:21] LABS: Glucose Point of Care 185 mg/dl (65-105)
[2023-08-08] MEDS: ENOXAPARIN 40 MG/0.4 ML SYRINGE SUB-Q (09:03)
[2023-08-08] MEDS: METOPROLOL TARTRATE 25 MG TABLET PO (09:03)
[2023-08-08] MEDS: ROSUVASTATIN 10 MG TABLET 40 MG PO (09:03)
[2023-08-08] MEDS: lisinopriL 10 MG TABLET PO (09:03)
[2023-08-08] MEDS: GABAPENTIN 300 MG CAPSULE PO ×2 (09:03→15:57)
[2023-08-08] MEDS: ASPIRIN 81 MG CHEWABLE TABLET PO (09:03)
--- NOTE | 2023-08-08 15:16 | PM.DS ---
DS: Admitting Diagnosis Discharge Date 08/08/2023 Admitting Diagnosis Right-sided weakness DS: Discharge Diagnosis Discharge Diagnosis (1) Cholecystitis: Code(s): K81.9 - Cholecystitis, unspecified Status: Acute Assessment and Plan: Patient denies any abdominal pain. This appears to be an incidental finding. He has been started on IV Rocephin which will continue for now. transitioned to oral flagyl (2) Generalized weakness: Code(s): R53.1 - Weakness Status: Acute Assessment and Plan: Weakness on the right side has resolved. Does not appear to be stroke. Head CTA normal. He reported some numbness in his fingers on the right hand. Could be cervical neuropathy. (3) Acute hypercapnic respiratory failure: Code(s): J96.02 - Acute respiratory failure with hypercapnia Status: Acute Assessment and Plan: Patient weaned off to 1 liter of oxygen (4) Elevated troponin: Code(s): R77.8 - Other specified abnormalities of plasma proteins Status: Acute (5) Acute kidney injury: Code(s): N17.9 - Acute kidney failure, unspecified Status: Acute Assessment and Plan: Baseline creatinine is 1.0. resolved can dc fluids creat is better (6) Acute UTI: Code(s): N39.0 - Urinary tract infection, site not specified Status: Acute Assessment and Plan: UC is positive for enterococcus pt transitioned to oral levaquin Plan Pt treated for lice in the hospital Pt can be dC to [facility] further rehab Pt is DC on 1 liter of oxygen DS: Summary Hospital Course Hospital Course: 62-year-old morbidly obese man who presents the emergency department with chief complaint of right-sided weakness.? Patient reports that he has prior history of stroke and history of an HI with weakness of the left side of his body.? patient also reports history of diabetes and has had Arthur's gangrene.?? Pt admitted withweakness, resp failure and cholecystitis Pt can come of BIPAP and start 4-5 liters of oxygen continue to wean off UC is positive pt changed to oral levaquin today And oral flagyl Unable to wean off oxygen pt dc to [facility] with 1 liter of oxyen Time Spent with Patient Time attestation: Total time spent providing and/or coordinating discharge services:40 minutes on day of DC Exam Narrative: GENERAL: Morbidly obese male wearing oxygen ENT: Nares clear, no rhinorrhea or epistaxis. Mucous membranes moist. NECK: Supple. CHEST: Clear to auscultation. No respiratory distress. HEART: Regular rate and rhythm. No murmur heard. Normal peripheral pulses. ABDOMEN: Soft, nontender, nondistended, normal active bowel sounds. EXTREMITIES: Normal range of motion. No edema. : No crepitance no necrotic tissue no appreciable abscess or cellulitis SKIN: Warm, dry, no rash. NEURO: No focal deficits. Slightly decreased data reviewer strength on the right upper extremity, left lower extremity is chronically weak and is able to lift against gravity. Left upper extremity is slightly weaker. alert and oriented x3. PSYCH: Normal mood and affect. DS: Data Data Completed and Pending Labs on day of discharge: Labs from last 24 hours 08/08/23 08/07/23 00:17 17:45 POC Capillary Glucose 185 H 191 H Preliminary micro results at discharge 08/04/23 21:03 Blood Culture - Preliminary Blood 08/04/23 21:03 Blood Culture - Preliminary Blood Discharge Plan Discharge Attending physician on discharge: Alayna Santoyo Discharging Clinician: Alayna Santoyo Anticipated Discharge Date/Time: 08/08/23 15:13 Patient Disposition: Inpatient Rehab Facility Activity: as tolerated Diet: as tolerated Discharge Instructions: DC to [facility] Pt dc on 1-2 liters of oxygen Stand Alone Forms: General Discharge Information Follow-up/Referrals: Maddy,Camilo Gamez MD [Primary Care Provider] - Discharge Medications
[2023-08-08] MEDS: levoFLOXacin 750 MG TABLET PO (15:57)
--- NOTE | 2023-08-08 16:42 | HOMEO2EVAL ---
Evaluation was performed at [facility] Home Oxygen Evaluation RC: Home Oxygen (O2) Evaluation Start: 08/08/23 11:01 Freq: ONCE Status: Active Protocol: RPE Activity Type Activity Date Activity User E-sign Co-sign Detail Recorded Client Recorded Date Recorded By Document 08/08/23 16:00 LELIA [email or web address] 08/08/23 16:42 LELIA Document 08/08/23 16:01 LELIA [email or web address] 08/08/23 16:42 LELIA Document 08/08/23 16:02 LELIA [email or web address] 08/08/23 16:42 LELIA Document 08/08/23 16:03 LELIA [email or web address] 08/08/23 16:42 LELIA Document 08/08/23 16:10 LELIA [email or web address] 08/08/23 16:42 LELIA 08/08/23 08/08/23 08/08/23 16:00 16:01 16:02 Home O2 Evaluation [Oxygen] -Test Phase Resting Resting Exercise -Oxygen Delivery Room Air Nasal Cannula Nasal Cannula -Oxygen Flow Rate (L/min) 1 1 [Pulse Oximetry] -Pulse Oximetry (90-100 %) 87 L 92 87 L [Comments] -Home Oxygen Evaluation Comments [Charges] -Treatment Charges O2 Evaluation - Inpatient 08/08/23 08/08/23 16:03 16:10 Home O2 Evaluation [Oxygen] -Test Phase Exercise Resting -Oxygen Delivery Nasal Cannula Nasal Cannula -Oxygen Flow Rate (L/min) 2 1 [Pulse Oximetry] -Pulse Oximetry (90-100 %) 91 93 [Comments] -Home Oxygen Evaluation Comments PT REQUIRES 1 L AT REST AND 2 L WITH ACTIVITY [Charges] -Treatment Charges
--- NOTE | 2023-08-08 16:45 | PCRCNOTE ---
SET UP HOME O2 WITH [facility]. CALL IF ANY QUESTIONS. [facility] WILL BE IN ROOM FOR TRANSPORT HOME.
== END 2023-08-08 18:21 | disposition home or self-care (01) ==
LOC: ANHED 08-05 00:11 → ANHIMU 08-05 00:27
PROVIDERS: Hospitalist; Admitting Provider Internal Medicine; Emergency Provider Emergency Medicine; PCP Internal Medicine; Visit Provider Family Medicine
DX: K81.0 Acute cholecystitis (principal); J96.02 Acute respiratory failure with hypercapnia; N17.9 Acute kidney failure, unspecified; G54.2 Cervical root disorders, not elsewhere classified; B85.2 Pediculosis, unspecified; I25.2 Old myocardial infarction; B95.2 Enterococcus as the cause of diseases classified elsewhere; E66.01 Morbid (severe) obesity due to excess calories; N39.0 Urinary tract infection, site not specified; E86.0 Dehydration; Z68.41 Body mass index [BMI] 40.0-44.9, adult; Z86.73 Personal history of transient ischemic attack (TIA), and cerebral infarction without residual deficits; Z20.822 Contact with and (suspected) exposure to COVID-19
CPT/HCPCS: 36415; 36600; 70496; 70498; 71045; 74176; 76705; 80048; 80053; 81001; 82805; 82948; 83605; 83690; 83735; 83880; 84145; 84484; 85025; 85027; 85610; 85652; 85730; 86140; 87040; 87077; 87086; 87088; 87186; 87636; 93005; 94002; 94618; 96361; 96374; 96375; 97161; 97165; 99285; A9270; J0456; J0612; J0696; J1650; J1815; J7030; Q9967

== ENCOUNTER 2023-09-01 22:04 | Emergency (ER) | payer BC, SELFPAY ==
--- NOTE | ~2023-09-01 | XR_ITS ---
XR chest 2V 09/01/2023 22:57 Indication: Generalized weakness. Recurrent UTI. Procedure: AP and lateral views of the chest Comparison: 08/04/2023 Findings: Cardiomegaly. Mild pulmonary vascular congestion. No pleural effusion, focal pneumonia or p neumothorax. No acute osseous abnormality. Impression: 1: Cardiomegaly with mild pulmonary vascular congestion. Reviewed, dictated and finalized at location A. Impression: 1: Cardiomegaly with mild pulmonary vascular congestion.
[2023-09-01 22:11] VITALS: BP 108/73; PULSE 72; RESP 16; TEMP 36.9; O2SAT 94
--- NOTE | 2023-09-01 22:16 | ECG_ITS ---
Measurements Intervals [place] Rate: 67 P: 22 MS: 156 QRS: 19 QRSD: 102 T: -41 QT: 378 QTc: 400 Interpretive Statements SINUS RHYTHM LOW QRS VOLTAGE IN PRECORDIAL LEADS INCOMPLETE RIGHT BUNDLE BRANCH BLOCK INFERIOR MYOCARDIAL INFARCTION , OF INDETERMINATE AGE T-WAVE ABNORMALITY, CONSIDER ISCHEMIA Electronically Signed On 09-03-2023 12:49:46 CDT by Senthil Fox M.D.
[2023-09-01 22:31] LABS: Basophils Percent Auto 0.3 % (0.2-1.2); Eosinophils Absolute Auto 0.1 K/mm3 (0-0.3); Eosinophils Percent Auto 0.4 % (0-4.4); Hematocrit 51.9 % (42.0-52.0); Hemoglobin 15.7 g/dL (14.0-18.0); Immature Granulocyte Absolute 0.05 K/mm3 (0.00-0.031); Immature Granulocyte Percent A 0.4 % (0-0.5); Lymphocytes Absolute Auto 1.43 K/mm3 (0.9-3.2); Lymphocytes Percent Auto 10.1 % (18.3-44.2); Mean Corpuscular HGB Conc 30.3 g/dl (32-36); Mean Corpuscular Hemoglobin 29.5 pg (26-34); Mean Corpuscular Volume 97.4 fl (80-100); Mean Platelet Volume 10.3 fl (7.4-10.4); Monocytes Absolute Auto 1.4 K/mm3 (0.1-0.6); Monocytes Percent Auto 9.6 % (2.6-8.5); Neutrophils Absolute Auto 11.3 K/mm3 (1.3-6.7); Neutrophils Percent Auto 79.2 % (45.5-73.1); Platelet Count Result 194 k/mm3 (150-375); Red Blood Count 5.33 M/mm3 (4.6-6.20); Red Cell Distribution Width 15.2 % (11.5-14.5); White Blood Count 14.2 K/mm3 (4.5-10.0)
[2023-09-01 22:43] LABS: Alanine Aminotransferase 15 U/L (6-50); Albumin Level 3.6 g/dL (3.5-5.1); Alkaline Phosphatase 90 U/L (38-126); Anion Gap 6 mmol/L (8-16); Aspartate Amino Transferase 18 U/L (17-59); Bilirubin,Total 0.7 mg/dL (0.2-1.3); Blood Urea Nitrogen 37 mg/dL (9-20); Calcium 8.3 mg/dL (8.4-10.2); Carbon Dioxide 32 mmol/L (22-30); Chloride 93 mmol/L (98-107); Estimated CRCL calculation 55 ml/min; Estimated Glomerular Filt Rate 39; Glucose 314 mg/dL (65-110); Potassium 4.9 mmol/L (3.4-5.0); Sodium 131 mmol/L (137-145)
[2023-09-02] VITALS (17 sets, daily range): BP systolic 101–146; BP diastolic 70–88; PULSE 67–88; RESP 16–32; TEMP 36.7; O2SAT 92–99
[2023-09-02 06:14] LABS: Appearance Urine Clear (Clear); Bacteria Urine None Seen /hpf; Bilirubin Urine Negative (Negative); Blood Urine Negative (Negative); Color Urine Yellow (Yellow); Glucose Urine UA 1+ mg/dL (Negative); Ketones Urine Negative (Negative); Leukocyte Esterase Ur Negative LEU/UL (Negative); Need Manual Microscopic Reviewed; Nitrate Urine Negative (Negative); Protein Urine 1+ mg/dL (Negative); RBC Urine 0-2 /hpf (0-2); Specific Grav Ur 1.015 (1.001-1.035); Squamous Epithelial Cell Urine Occasional /hpf (Few); Urobilinogen Urine 0.2 mg/dL (<2.0); WBC Urine 0-5 /hpf
[2023-09-02 06:17] LABS: Add Urine Microscopic? YES
--- NOTE | 2023-09-02 07:31 | ED.GENADULT ---
HPI - General Adult General Chief complaint: Urogenital-Male Stated complaint: UTI Time Seen by Provider: 09/02/23 06:54 History of Present Illness HPI narrative: 62-year-old male presenting to the emergency department for evaluation of increased generalized weakness. Patient states yesterday he began having weakness with ambulation. Patient suspected he was having a urinary tract infection. Patient does have history of CHF and is on 1 L of oxygen at rest and 2 to 3 L of oxygen with ambulation. Related Data Home Medications Medication Instructions Recorded Confirmed lisinopril 10 mg tablet 10 mg PO DAILY 04/11/22 08/05/23 rosuvastatin 40 mg tablet 40 mg PO DAILY 04/11/22 08/05/23 gabapentin 300 mg capsule 300 mg PO TID 08/05/23 08/05/23 metformin 1,000 mg tablet 1,000 mg PO BID 08/05/23 08/05/23 metoprolol tartrate 25 mg tablet 25 mg PO BID 08/05/23 08/05/23 sitagliptin phosphate 100 mg 100 mg PO DAILY 08/05/23 08/05/23 tablet (Januvia) insulin glargine 100 unit/mL (3 20 unit subcut HS 08/07/23 08/07/23 mL) subcutaneous pen (Lantus Solostar U-100 Insulin) insulin lispro 100 unit/mL See Rx Instructions .Route .COMPLEX 08/07/23 08/07/23 subcutaneous pen Allergies Allergy/AdvReac Type Severity Reaction Status Date / Time No Known Allergies Allergy Mild Verified 08/31/10 20:43 Review of Systems Review of Systems: All systems reviewed & are unremarkable except as noted in HPI and below PMFSH Social History Social History Smoking status: Unknown if ever smoked Lack of Transportation: No Lack of Food: Never True Current Housing: I Have Housing Concerned About Future Housing: No Difficulty Paying Gas/Electric Bills: No Difficulty Paying for Meds: No Currently Unemployed: No Education: Trade/Vocational Certificate Difficulty w/ Childcare or Family Care: No Spiritual care concerns: No Exam Narrative: APPEARANCE: Well appearing, no pain, no distress, well-nourished. HEAD: normocephalic, atraumatic. EYES: PERRLA/EOMI, conjunctivae clear. NOSE: Normal no drainage EARS:TMS clear with good light reflex. THROAT: Pharynx clear, no exudate. NECK: Supple. No adenopathy, no masses. RESPIRATORY: Airway patent, respirations nonlabored. Clear to auscultation bilaterally, no rales, rhonchi, wheezing. CARDIOVASCULAR: Regular rate and rhythm without murmurs rubs or gallops. ABDOMINAL: Soft, nontender, nondistended, normal bowel sounds MUSCULOSKELETAL: Moves all extremities. Strength/ROM intact, No edema, No calf tenderness. NEURO: Alert. Cranial nerves II through XII intact. Grossly intact SKIN: Warm, dry. Normal Color Course Course Emergency Course: 62-year-old male presented the emergency department for evaluation for increased generalized weakness. Patient is afebrile but does have a leukocytosis of 14.2. Patient's CMP is similar to his baseline. Patient does have an elevated BNP but this has been elevated on his previous labs. UA shows no evidence of infection. Patient was negative for COVID influenza and RSV. Chest x-ray did show evidence of pulmonary edema. Patient states he does feel improved and is requesting discharge to home. Patient was treated with IV Lasix prior to discharge due to his pulmonary edema. Vital Signs Vital signs: Vital Signs Temperature 98.5 F 09/01/23 22:11 Pulse Rate 72 09/01/23 22:11 Respiratory Rate 16 09/01/23 22:11 Blood Pressure 108/73 09/01/23 22:11 Pulse Oximetry 94 09/01/23 22:11 Oxygen Delivery Nasal Cannula 09/01/23 22:11 Oxygen Flow Rate 2 09/01/23 22:11 Temperature 98.0 F 09/02/23 08:30 Pulse Rate 88 09/02/23 09:28 Respiratory Rate 20 09/02/23 09:28 Blood Pressure 146/82 H 09/02/23 09:28 Pulse Oximetry 95 09/02/23 09:28 Oxygen Delivery Nasal Cannula 09/02/23 06:38 Oxygen Flow Rate 3 09/02/23 06:38 Medical Decision Making Differe
[2023-09-02 07:43] LABS: NT Pro B Type Natriuretic Pept 3910 pg/mL (19.9-100)
[2023-09-02 07:57] LABS: Influenza A QL RT-PCR Negative (Negative); Influenza B QL RT-PCR Negative (Negative); RSV RNA, RT-PCR Negative (Negative); SARS-CoV-2 RNA PCR Negative (Negative)
--- NOTE | 2023-09-02 08:27 | PC.NURSE ---
ambulated in [place] with walker and stand by assist, gait is steady
[2023-09-02] MEDS: FUROSEMIDE TABLET 20 MG, FUROSEMIDE TABLET 40 MG 60 MG PO (09:18)
== END 2023-09-02 09:31 | disposition home or self-care (01) ==
PROVIDERS: Emergency Medicine; Emergency Provider Emergency Medicine; PCP Internal Medicine
DX: R53.1 Weakness (principal); I50.1 Left ventricular failure, unspecified; Z20.822 Contact with and (suspected) exposure to COVID-19; Z99.81 Dependence on supplemental oxygen; Z79.84 Long term (current) use of oral hypoglycemic drugs; Z79.4 Long term (current) use of insulin; I51.7 Cardiomegaly; I45.10 Unspecified right bundle-branch block; R94.31 Abnormal electrocardiogram [ECG] [EKG]
CPT/HCPCS: 36415; 71046; 80053; 81001; 83880; 85025; 87637; 93005; 99283; A9270

== ENCOUNTER 2024-08-10 12:33 | Emergency (ER) | payer BC, SELFPAY ==
--- NOTE | ~2024-08-10 | CT_ITS ---
EXAMINATION: CT abdomen pelvis wo con DATE: 08/10/2024 14:21 INDICATION: Urinary tract infection. History of Arthur's gangrene TECHNIQUE: Computed tomography (CT) of the abdomen and pelvis was performed without intravenous contr ast. Automated exposure control and iterative reconstruction technique were employed. Exam dose: 147 1.41 mGy-cm total exam DLP. COMPARISON: 08/04/2023 CT abdomen pelvis 08/04/2023 Limited abdominal ultrasound examination FINDINGS: The lung bases are clear of infiltrate or consolidation. Heart size is within normal limits. There is prominent left main, left anterior descending and left c ircumflex in addition to some right coronary artery calcification, placing the patient at significant cardiovascular risk. No pericardial or pleural effusion. No pericardial or pleural effusion. Very small sliding hiatal hernia. The gallbladder is present; no gallbladder wall thickening or pericholecystic fluid or fat stranding. No bile duct or pancreatic duct dilatation. No hepatic, splenic, pancreatic or adrenal space-occupying mass lesion is detected. No renal space occupying mass lesion is evident on this limited noncontrast examination. No urinary t ract calculus or hydroureteronephrosis. There is atherosclerotic calcification but normal caliber of the abdominal aorta, iliac and femoral a rteries. No intraperitoneal or retroperitoneal or pelvic mass lesion or adenopathy or ascites is note d. There is limited distention of the urinary bladder. The bladder wall appears uniformly thickened. The re is pericystic fat stranding. The bladder wall thickening and pericystic fat stranding raises gilberto rn for cystitis. Recommend correlation with urinalysis. Small bilateral fat-containing inguinal hernias. Normal appendix. Mild colonic diverticulosis; no CT evidence of diverticulitis. No bowel obstruction or intraperitoneal free air is evident. There is chronic prominent compression fracture deformity of L3. Chronic mild anterior wedging of T11 , T12 and L1. Degenerative spurring of the thoracic and lumbar spine. IMPRESSION: Bladder wall thickening and fat stranding around the bladder, suggesting urinary tract i nfection Mild sigmoid colon diverticulosis; no CT evidence of diverticulitis. Normal appendix Reviewed, dictated and finalized at [facility]. Reviewed, dictated and finalized at location A. IMPRESSION: Bladder wall thickening and fat stranding around the bladder, sugg esting urinary tract infection Mild sigmoid colon diverticulosis; no CT evidence of diverticulitis. Normal appendix
[2024-08-10 12:44] VITALS: BP 119/63; PULSE 96; RESP 20; O2SAT 92
[2024-08-10 12:45] VITALS: BP 112/65; PULSE 103; RESP 22; TEMP 36.8; O2SAT 92
[2024-08-10 13:39] LABS: Add Urine Microscopic? YES; Appearance Urine Turbid (Clear); Bacteria Urine None Seen /hpf; Bilirubin Urine 1+ (Negative); Blood Urine 1+ (Negative); Color Urine Dark Yellow (Yellow); Glucose Urine UA Negative (Negative); Granular Casts Urine Present /lpf; Ketones Urine Trace mg/dL (Negative); Leukocyte Esterase Ur 1+ LEU/UL (Negative); Need Manual Microscopic Reviewed; Nitrate Urine Negative (Negative); Non Pathogenic Casts >20; Protein Urine 3+ mg/dL (Negative); RBC Urine 0-2 /hpf (0-2); Specific Grav Ur 1.025 (1.001-1.035); Squamous Epithelial Cell Urine Few /hpf (Few); WBC Urine 21-50 /hpf (0-3); pH Urine 5.5 (5.0-9.0)
[2024-08-10 14:31] LABS: Basophils Absolute Auto 0.1 K/mm3 (0.0-0.1); Basophils Percent Auto 0.3 % (0.2-1.2); Eosinophils Percent Auto 0.1 % (0-4.4); Hematocrit 46.7 % (42.0-52.0); Hemoglobin 15.5 g/dL (14.0-18.0); Immature Granulocyte Percent A 0.5 % (0-0.5); Lymphocytes Percent Auto 7.9 % (18.3-44.2); Mean Corpuscular HGB Conc 33.2 g/dl (32-36); Mean Corpuscular Hemoglobin 30.5 pg (26-34); Mean Corpuscular Volume 91.7 fl (80-100); Mean Platelet Volume 10.1 fl (7.4-10.4); Monocytes Absolute Auto 1.6 K/mm3 (0.1-0.6); Monocytes Percent Auto 8.5 % (2.6-8.5); Neutrophils Absolute Auto 15.6 K/mm3 (1.3-6.7); Neutrophils Percent Auto 82.7 % (45.5-73.1); Platelet Count Result 179 k/mm3 (150-375); Red Blood Count 5.09 M/mm3 (4.6-6.20); Red Cell Distribution Width 14.1 % (11.5-14.5); White Blood Count 18.9 K/mm3 (4.5-10.0)
[2024-08-10] MEDS: SODIUM CHLORIDE 0.9% IV 2,000 ML 999 ML IV CONT ×2 (14:33→16:07)
[2024-08-10 14:35] VITALS: BP 117/74; PULSE 93; RESP 22; O2SAT 92
[2024-08-10 14:45] LABS: Alanine Aminotransferase 17 U/L (6-50); Albumin Level 3.6 g/dL (3.5-5.1); Alkaline Phosphatase 91 U/L (38-126); Anion Gap 10 mmol/L (4-12); Aspartate Amino Transferase 21 U/L (17-59); Bilirubin,Total 0.8 mg/dL (0.2-1.3); Blood Urea Nitrogen 31 mg/dL (9-20); Calcium 8.5 mg/dL (8.4-10.2); Carbon Dioxide 25 mmol/L (22-30); Chloride 96 mmol/L (98-107); Estimated CRCL calculation 62 ml/min; Estimated Glomerular Filt Rate 48; Glucose 284 mg/dL (65-110); Potassium 4.3 mmol/L (3.4-5.0); Sodium 131 mmol/L (137-145)
[2024-08-10] MEDS: cefTRIAXone 2 GM/NS 100 ML 2 GM/100 ML BAG IVPB (15:31)
[2024-08-10 15:47] VITALS: BP 110/89; PULSE 81; RESP 15; O2SAT 93
[2024-08-10 15:50] VITALS: O2SAT 93
--- NOTE | 2024-08-10 16:17 | ED.GENADULT ---
HPI - General Adult General Chief complaint: Urogenital-Male Stated complaint: UTI, Time Seen by Provider: 08/10/24 13:17 History of Present Illness HPI narrative: This is a 63-year-old male presenting ED with chief complaint of urinary symptoms. He has been having dysuria urgency and frequency. No blood in his urine. No fevers chills nausea vomiting or diarrhea. He has felt a little bit weak and dizzy since his symptoms started. No chest pain difficulty breathing abdominal pain. Related Data Home Medications Medication Instructions Recorded Confirmed lisinopril 10 mg tablet 10 mg PO DAILY 04/11/22 08/05/23 rosuvastatin 40 mg tablet 40 mg PO DAILY 04/11/22 08/05/23 gabapentin 300 mg capsule 300 mg PO TID 08/05/23 08/05/23 metformin 1,000 mg tablet 1,000 mg PO BID 08/05/23 08/05/23 metoprolol tartrate 25 mg tablet 25 mg PO BID 08/05/23 08/05/23 sitagliptin phosphate 100 mg 100 mg PO DAILY 08/05/23 08/05/23 tablet (Januvia) insulin glargine 100 unit/mL (3 20 unit subcut HS 08/07/23 08/07/23 mL) subcutaneous pen (Lantus Solostar U-100 Insulin) insulin lispro 100 unit/mL See Rx Instructions .Route .COMPLEX 08/07/23 08/07/23 subcutaneous pen Allergies Allergy/AdvReac Type Severity Reaction Status Date / Time No Known Allergies Allergy Mild Verified 08/10/24 12:44 [facility] Social History Social History Smoking status: Unknown if ever smoked Lack of Transportation: No Lack of Food: Never True Current Housing: I Have Housing Concerned About Future Housing: No Difficulty Paying Gas/Electric Bills: No Difficulty Paying for Meds: No Currently Unemployed: No Education: Trade/Vocational Certificate Difficulty w/ Childcare or Family Care: No Spiritual care concerns: No Exam Narrative: APPEARANCE: No apparent distress. Head: atraumatic. EYES: EOMI, NOSE: Atraumatic NECK: Trachea midline RESPIRATORY: No increased rate of breathing clear to auscultation CARDIOVASCULAR: RRR, no peripheral edema ABDOMINAL: Obese, nontender soft no CVA tenderness MUSCULOSKELETAl: No obvious deformities NEURO: Alert. Moving 4/4 extremities SKIN:: Warm, dry. Normal color PSYCHIATRIC: Normal affect Course Vital Signs Vital signs: Vital Signs Pulse Rate 96 08/10/24 12:44 Respiratory Rate 20 08/10/24 12:44 Blood Pressure 119/63 08/10/24 12:44 Pulse Oximetry 92 08/10/24 12:44 Temperature 98.3 F 08/10/24 12:45 Pulse Rate 81 08/10/24 15:47 Respiratory Rate 15 08/10/24 15:47 Blood Pressure 110/89 08/10/24 15:47 Pulse Oximetry 93 08/10/24 15:50 Oxygen Delivery Nasal Cannula 08/10/24 15:50 Oxygen Flow Rate 2 08/10/24 15:50 Medical Decision Making MDM Narrative Medical decision making narrative: -Course: 63-year-old male presenting with urinary symptoms. UTI indicative of infection. Patient was given ceftriaxone/IV fluids. At this point he was ambulated around the emergency department and his lightheadedness has improved. He does have an elevated white blood cell count but says he feels well overall. I offered admission and the patient has declined. I explained him that he was high risk for progression to sepsis he has verbalized his understanding. He is still declining admission. He would like a course of antibiotics and he will return if his condition is to worsen. Patient was originally given dose of ceftriaxone but a review of the microbiology he had a UTI in July of 2023 that was pansensitive Enterococcus. He will be discharged on ciprofloxacin. Primary care follow-up. -DDX includes but is not limited to: UTI, pyelonephritis, sepsis, dehydration -Co-morbidities complicating care: History of Arthur's, diabetes -Independent interpretation of studies: White count 19.9 Metabolic panel with slight hyponatremia hypochloremia. Kidney function at baseline. No acidosis. CT abdomen pelvis showed
[2024-08-10 18:05] VITALS: BP 110/89; PULSE 80; RESP 18; O2SAT 95
== END 2024-08-10 18:06 | disposition home or self-care (01) ==
PROVIDERS: Emergency Provider Emergency Medicine; PCP Internal Medicine
DX: N39.0 Urinary tract infection, site not specified (principal); D72.829 Elevated white blood cell count, unspecified; N49.3 Fournier gangrene; E11.9 Type 2 diabetes mellitus without complications; Z79.84 Long term (current) use of oral hypoglycemic drugs; Z79.4 Long term (current) use of insulin; Z79.899 Other long term (current) drug therapy
CPT/HCPCS: 36415; 74176; 80053; 81001; 85025; 87077; 87086; 87088; 87186; 96361; 96365; 99284; J0696; J7030